=== PATIENT | male | born 1980 | race Caucasian/White ===

== ENCOUNTER 2016-12-07 | Emergency (ER) | payer OTHER | END 2016-12-07 19:57 | disposition home or self-care (01) | DX: T18.128A Food in esophagus causing other injury, initial encounter (principal) ==

== ENCOUNTER 2016-12-07 | Outpatient (CLI) | payer OTHER | END 2016-12-07 19:01 | disposition critical access hospital (66) | DX: T17.228A Food in pharynx causing other injury, initial encounter (principal) | CPT/HCPCS: A0425; A0429 ==